=== PATIENT | female | born 1950 | race Caucasian/White ===

== ENCOUNTER 2017-07-06 16:08 | Outpatient (CLI) | payer BC | END 2017-07-06 16:09 | disposition home or self-care (01) | LOC: BICRAD 16:08 | PROVIDERS: ATTEND Podiatrist | DX: M79.672 Pain in left foot; M79.671 Pain in right foot ==

== ENCOUNTER → 2018-09-08 | Day surgery (SDC) | payer MEDICARE, BC ==
[~2018-09-08] MED LIST: Bupivacaine HCl 0.5%/Epinephrine 1:200,000/PF 30 ml Vial ONE; Fentanyl 100 MCG/2 ML VIAL ONE; HYDROmorphone 2 MG/ML VIAL SLOW IVP PRN; Ketorolac Tromethamine 30 MG/ML VIAL ONE; Ondansetron HCl/PF 4 MG/2 ML Vial IVP PRN; PACU-Morphine 4MG/ML VIAL SLOW IVP PRN; Piperacillin/Tazobactam 3.375 GM VIAL ONE; Promethazine HCl 25 MG/ML VIAL IM PRN; Promethazine HCl 25 MG/ML VIAL SLOW IVP PRN
[2018-09-08 07:48] LABS: #Basophils 0.1 thou/uL (0.0-0.2); #Eosinphils 0.1 thou/uL (0.0-0.7); #Lymphocytes 1.4 thou/uL (1.20-3.40); #Monocytes 0.9 thou/uL (0.11-0.59); #Neutrophils 8.8 thou/uL (1.40-6.50); %Basophils 0.4 % (0.0-1.0); %Eosinophils 1.2 % (0.0-10.0); %Lymphocytes 12.5 % (21.0-51.0); %Monocytes 8.2 % (0.0-10.0); %Neutrophils 77.7 % (42.0-75.0); Mean Corpuscular HGB CONC 33.3 g/dL (32.0-36.0); Mean Corpuscular Volume 90.1 fL (78.0-98.0); Mean Platelet Volume 8.4 fL (7.4-10.4); Platelet Count 213 thou/uL (130-400); RBC Distribution Width 11.8 % (11.5-14.5); Red Blood Cell (RBC) Count 4.65 mill/uL (4.20-5.40); White Blood Cell (WBC) Count 11.3 thou/uL (4.8-10.8)
[2018-09-08 08:09] LABS: ALT (SGPT) 24 U/L (8-55); AST (SGOT) 27 U/L (5-34); Albumin 4.2 g/dL (3.4-4.8); Alkaline Phosphatase 85 U/L (40-150); Anion Gap 13 mmol/L (10-20); BUN (Urea Nitrogen) 16 mg/dL (9.8-20.1); Bilirubin, Total 0.4 mg/dL (0.2-1.2); Calc. Creatinine Clearance 0 mL/min (70-130); Calcium 9.7 mg/dL (7.8-10.44); Carbon Dioxide 23 mmol/L (23-31); Chloride 105 mmol/L (98-107); Estimated GFR-MDRD 65; Globulin 2.7 g/dL (2.4-3.5); Glucose 116 mg/dL (80-115); Lipase 24 U/L (8-78); Potassium 4.1 mmol/L (3.5-5.1); Protein, Total 6.9 g/dL (6.0-8.3); Sodium 137 mmol/L (136-145)
--- NOTE | 2018-09-08 09:31 | CT ---
EXAM: Abdomen and pelvic CT scan with contrast: HISTORY: Right lower quadrant pain COMPARISON: None FINDINGS: The visualized lung bases are clear. Liver: 1.9 cm liver cyst. Gallbladder:Unremarkable. Pancreas:Unremarkable Spleen:Unremarkable. Adrenal glands:Unremarkable. Kidneys:No renal calculus or acute obstruction.Small bilateral renal cysts. No evidence for bowel obstruction. Abnormally dilated appendix with 2 appendicoliths and periappendiceal fat stranding evidence for acut e appendicitis. The urinary bladder is unremarkable. No abscess, adenopathy, or abnormal fluid collection within the abdomen or pelvis. IMPRESSION: Evidence for acute appendicitis. Findings were discussed with ordering physician at 9:00 AM
--- NOTE | 2018-09-08 12:58 | OP ---
DATE OF PROCEDURE: 09/08/2018 PREOPERATIVE DIAGNOSIS: Acute appendicitis. POSTOPERATIVE DIAGNOSIS: Acute appendicitis. PROCEDURE PERFORMED: Laparoscopic video appendectomy. ANESTHESIA: General, local 0.5% Marcaine with epinephrine 30 mL. DESCRIPTION OF PROCEDURE: The patient was taken to the operating room. Under general anesthesia, abdomen was prepared with ChloraPrep and draped in routine fashion. Stevens catheter placed at the beginning of the procedure, removed at the end. Local anesthetic was infiltrated in the skin and subcutaneous tissue at each port site. Infraumbilical incision was made. Pneumoperitoneum to 15 mmHg was obtained with a Veress needle, replaced with a 5 port, laparoscope inserted. Right lateral subcostal incision was made and a 5 port placed. Suprapubic incision was made and a 12 port placed. Appendix was noted to be acutely inflamed. Mesoappendix was taken down with the LigaSure. The stump of the appendix divided, the cecal stump with Endo RUSS blue load stapler. Appendix removed, submitted to Pathology. Hemostasis at the cecal stapled stump gained with clips. Area irrigated, irrigant evacuated. Hemostasis was ensured. Suprapubic fascia was approximated with 0 Vicryl GraNee needle. Irrigant and pneumoperitoneum evacuated. All instruments were removed. All skin incisions were approximated with interrupted subdermal 4-0 Monocryl and [place] glue applied. Job ID: [id number]
--- NOTE | 2018-09-09 07:40 | HP ---
HISTORY OF PRESENT ILLNESS: Tamia Mittal is a 67-year-old female, who had an onset of right lower quadrant pain yesterday, presented to the emergency room, found to have a white count of 11, underwent a CAT scan of pelvis revealing changes consistent with her history and clinical exam of appendicitis. ALLERGIES: NONE. TOBACCO: None. ALCOHOL: None. PAST SURGICAL HISTORY: Total abdominal hysterectomy, bilateral salpingo-oophorectomy. PAST MEDICAL HISTORY: She is up to date on her colonoscopies. She has had a cardiac ablation for SVT in the past. This was performed at [facility]. She denies any cardiac symptoms. MEDICATIONS: 1. Risedronate 40 mg once a week. 2. Trazodone 100 mg at bedtime. 3. Lyrica 75 mg a day. 4. Vitamin D3 daily. 5. Escitalopram 20 mg a day. 6. Bupropion 100 mg a day. REVIEW OF SYSTEMS: [employer] noncontributory. Otherwise, they live in [place]. 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 PHYSICAL EXAMINATION: VITAL SIGNS: 111/56, 74, 16. HEAD, EARS, EYES, NOSE AND THROAT: Unremarkable. LUNGS: Clear to auscultation. CARDIAC: Regular rate and rhythm without murmur or gallop. ABDOMEN: Soft. Tenderness in right lower quadrant. No guarding or rebound. ASSESSMENT AND PLAN: Acute appendicitis. Recommend a laparoscopic video appendectomy. Risks of infection, bleeding, and reoperation discussed and she consents. Job ID: [id number]
== END ==
LOC: ERS 07:19 → SDC 10:20
PROVIDERS: ATTEND Specialist
PROC: 0DTJ4ZZ Resection of Appendix, Percutaneous Endoscopic Approach (ICD-10-PCS; principal; 2018-09-08)
DX: K35.80 Unspecified acute appendicitis (principal); F41.9 Anxiety disorder, unspecified; F32.9 Major depressive disorder, single episode, unspecified; M81.0 Age-related osteoporosis without current pathological fracture; Z79.899 Other long term (current) drug therapy
CPT/HCPCS: 36415; 74177; 80053; 83690; 84484; 85025; 88304; 93005; J0131; J0670; J1885; J2543; J3010

== ENCOUNTER 2018-09-15 07:38 | Emergency (ER) | payer BC, MEDICARE ==
[2018-09-15 09:15] LABS: #Basophils 0.1 thou/uL (0.0-0.2); #Eosinphils 0.2 thou/uL (0.0-0.7); #Monocytes 0.6 thou/uL (0.11-0.59); #Neutrophils 4.6 thou/uL (1.40-6.50); %Basophils 0.8 % (0.0-1.0); %Eosinophils 3.1 % (0.0-10.0); %Lymphocytes 26.4 % (21.0-51.0); %Monocytes 8.2 % (0.0-10.0); %Neutrophils 61.5 % (42.0-75.0); Hemoglobin 13.1 g/dL (12.0-16.0); Mean Corpuscular HGB CONC 32.7 g/dL (32.0-36.0); Mean Corpuscular Hemoglobin 29.7 pg (27.0-31.0); Mean Corpuscular Volume 90.9 fL (78.0-98.0); Mean Platelet Volume 8.3 fL (7.4-10.4); Platelet Count 239 thou/uL (130-400); Red Blood Cell (RBC) Count 4.41 mill/uL (4.20-5.40); White Blood Cell (WBC) Count 7.4 thou/uL (4.8-10.8)
[2018-09-15 09:39] LABS: ALT (SGPT) 29 U/L (8-55); AST (SGOT) 27 U/L (5-34); Alkaline Phosphatase 73 U/L (40-150); Anion Gap 10 mmol/L (10-20); BUN (Urea Nitrogen) 19 mg/dL (9.8-20.1); Bilirubin, Total 0.4 mg/dL (0.2-1.2); Calc. Creatinine Clearance 0 mL/min (70-130); Calcium 9.7 mg/dL (7.8-10.44); Carbon Dioxide 26 mmol/L (23-31); Chloride 109 mmol/L (98-107); Estimated GFR-MDRD 64; Globulin 2.6 g/dL (2.4-3.5); Glucose 90 mg/dL (80-115); Potassium 3.7 mmol/L (3.5-5.1); Protein, Total 6.6 g/dL (6.0-8.3); Sodium 141 mmol/L (136-145)
[2018-09-15 10:07] LABS: Bilirubin Negative (Negative); Blood, Urine Negative (Negative); Clarity CLEAR (Clear); Glucose, Urine (Dipstick) Negative (Negative); Leukocyte Negative (Negative); Nitrite Negative (Negative); Protein, Urine (Dipstick) Negative (Neg-Trace); Specific Gravity, Urine 1.017 (1.002-1.036); Urobilinogen 0.2 mg/dL (0.2-1.0); pH, Urine 6.5 (5.0-9.0)
--- NOTE | 2018-09-15 11:43 | CT ---
CT ABDOMEN AND PELVIS WITH ORAL AND IV CONTRAST: HISTORY: A 67-year-old female with appendectomy on 09/08/2018. Complains of drainage from rectum that started l ast night. COMPARISON: 09/08/2018. FINDINGS: Interval postop changes of appendectomy are seen. There are mild dependent changes in the lung bases . The approximately 2 cm cyst in the liver is again noted. No free air, free fluid, or abnormally l oculated fluid collection is seen in the abdomen or pelvis. No lymphadenopathy is identified. A ret roaortic left renal vein is again seen. The small bowel loops are not abnormally dilated. There is prominence of the wall of the sigmoid col on and rectum. There are degenerative changes in the spine. There is no evidence of aneurysmal dila tation of the abdominal aorta. IMPRESSION: 1. Status post appendectomy without evidence of abscess formation. 2. Prominence of the reyes of the rectosigmoid. Wall thickness cannot be excluded. Colonoscopy wou ld be helpful. POS: ALISSA
== END 2018-09-15 13:35 | disposition home or self-care (01) ==
LOC: ERS 07:38
DX: R15.9 Full incontinence of feces (principal); G47.00 Insomnia, unspecified; M81.0 Age-related osteoporosis without current pathological fracture; F41.9 Anxiety disorder, unspecified; F32.9 Major depressive disorder, single episode, unspecified; Z79.899 Other long term (current) drug therapy
CPT/HCPCS: 74177; 80053; 81003; 85025; 87324; 87449

== ENCOUNTER 2018-09-20 11:41 | Outpatient (CLI) | payer MEDICARE, BC ==
--- NOTE | 2018-09-20 12:08 | RAD ---
TWO VIEWS ABDOMEN: HISTORY: Evaluate for constipation. COMPARISON: None. FINDINGS: Nonspecific bowel gas pattern. No suspicious densities in the abdomen or pelvis. No differential air- fluid levels. No pneumoperitoneum. Scattered fecal material in the colon. No evidence of constipation. Surgical clips in the right lower quadrant. IMPRESSION: Nonspecific bowel gas pattern. No radiographic evidence of constipation. Transcribed Date/Time: 09/20/2018 12:15 PM
== END 2018-09-20 11:42 | disposition home or self-care (01) ==
LOC: BICRAD 11:41
PROVIDERS: ATTEND Specialist
DX: K59.00 Constipation, unspecified (principal)
CPT/HCPCS: 74019

== ENCOUNTER 2018-10-16 09:08 | Outpatient (CLI) | payer MEDICARE, BC ==
--- NOTE | 2018-10-16 10:43 | RAD ---
THORACIC SPINE TWO VIEWS: FINDINGS: Views of the thoracic spine demonstrate some generalized disk osteophytosis. There is mild anterior vertical height loss of what appears to be the T6 vertebral body, evidence for mild compression, age indeterminate. No significant malalignment. No evidence for retropulsion. IMPRESSION: Age indeterminate mild vertical height loss of probably the T6 vertebral body. This has more of an o ld appearance radiographically. Generalized spondylosis. Depending upon concern, additional imaging with CT or MRI might give additional information in this regard. POS: Ayan
== END 2018-10-16 09:09 | disposition home or self-care (01) ==
LOC: BICRAD 09:08
PROVIDERS: ATTEND Internal Medicine Rheumatology
DX: M54.9 Dorsalgia, unspecified (principal); M47.814 Spondylosis without myelopathy or radiculopathy, thoracic region
CPT/HCPCS: 72070

== ENCOUNTER 2023-06-15 05:49 | Day surgery (SDC) | payer MEDICARE ==
[2023-06-12 11:38] VITALS: BMI 32.2
[2023-06-15] MEDS ORDERED: EPINEPHrine 1 MG/ML VIAL ONE (06:25)
[2023-06-15] MEDS ORDERED: Bupivacaine 0.25% HCL 30 ML VIAL ONE ×2 (06:26→07:02)
[2023-06-15] MEDS ORDERED: fentaNYL PF 100 MCG/2 ML SYRINGE ONE (06:47)
[2023-06-15] MEDS ORDERED: PROPOFOL 20 ML ONE (06:48)
[2023-06-15] MEDS ORDERED: Midazolam HCl 2 mg/2 ml Vial ONE (06:48)
[2023-06-15] MEDS ORDERED: Lidocaine 1% PF 5 ML VIAL ONE (06:50)
[2023-06-15] MEDS ORDERED: Rocuronium Bromide 10 MG/ML (10ML VIAL) ONE (06:50)
[2023-06-15] MEDS ORDERED: Lidocaine 1% MPF 2 ML VIAL ONE (07:02)
[2023-06-15] MEDS ORDERED: Bupivacaine PF 0.5% 30 ML VIAL ONE (07:03)
[2023-06-15] MEDS ORDERED: CEFAZOLIN 2 GM VIAL ONE (07:16)
[2023-06-15] MEDS ORDERED: Sodium Chloride 0.9% 100 ML ONE (07:16)
[2023-06-15] MEDS ORDERED: fentaNYL 50 mcg/mL 1 mL Vial ONE (08:17)
[2023-06-15] MEDS ORDERED: Ropivacaine 0.2% 550 ML 550 ML NERVE BLCK SCH (08:30)
[2023-06-15] MEDS ORDERED: Ondansetron PF 4 MG/2 ML Vial IVP PRN (08:30)
[2023-06-15] MEDS ORDERED: HYDROcodone/Acetaminophen 5/325 mg Tablet PO PRN ×2 (08:30)
[2023-06-15] MEDS ORDERED: Promethazine HCl 25 MG/ML VIAL IM PRN (08:30)
[2023-06-15] MEDS ORDERED: Zolpidem Tartrate 5 MG TAB PO PRN (08:30)
[2023-06-15] MEDS ORDERED: Dexamethasone 4 mg/ml Vial ONE (08:55)
[2023-06-15] MEDS ORDERED: Ondansetron PF 4 MG/2 ML Vial ONE (08:55)
[2023-06-15] MEDS ORDERED: Ketorolac Tromethamine 30 MG (1 mL) VIAL ONE (08:55)
[2023-06-15] MEDS ORDERED: SUGAMMADEX SODIUM 200 MG/2 ML VIAL ONE (08:57)
[2023-06-15] MEDS ORDERED: Acetaminophen 500 MG TAB PO SCH (12:00)
[2023-06-15] MEDS ORDERED: Ketorolac Tromethamine 30 MG (1 mL) VIAL IVP SCH (12:00)
== END 2023-06-15 13:05 | disposition home or self-care (01) ==
LOC: SDC 05:49
PROVIDERS: ATTEND Orthopaedic Surgery
PROC: 0RNJ4ZZ Release Right Shoulder Joint, Percutaneous Endoscopic Approach (ICD-10-PCS; principal; 2023-06-15)
PROC: 0LS30ZZ Reposition Right Upper Arm Tendon, Open Approach (ICD-10-PCS; 2023-06-15)
DX: M75.101 Unspecified rotator cuff tear or rupture of right shoulder, not specified as traumatic (principal); M67.813 Other specified disorders of tendon, right shoulder
CPT/HCPCS: 24340; 29826; 29827; A4306; C1713; C1894; J0171; J0665; J1100; J1885; J2250; J2405; J2704; J2795; J3010; J3490